=== PATIENT | female | born 1985 | race Caucasian/White ===

== ENCOUNTER 2017-10-22 20:35 | Emergency (ER) | payer MEDICAID ==
[~2017-10-22] VITALS: Ht 165.1 cm; Wt 106.0 kg
[2017-10-22] MEDS ORDERED: LABE100T3 PO (20:50)
[2017-10-22] MEDS ORDERED: SERT100T PO (20:50)
[2017-10-22] MEDS ORDERED: ALBUTEROL/IPRATROPIUM 2.5MG/0.5MG, 3 ML NPPB PRN (21:00)
[2017-10-22] MEDS ORDERED: ALBU0.63 NEB (21:09)
[2017-10-22] MEDS ORDERED: ALBUTEROL/IPRATROPIUM 2.5MG/0.5MG, 3 ML ONE ×2 (21:10→22:52)
[2017-10-22] MEDS ORDERED: PLEASE ENTER ALLERGIES MC SCH (21:30)
[2017-10-22 21:33] LABS: BASOPHILS # (AUTO) 0.07 x10^3/uL (0-0.1); BASOPHILS % (AUTO) 1 % (0-1); EOSINOPHILS # (AUTO) 0.71 x10^3/uL (0-0.4); EOSINOPHILS % (AUTO) 5 % (1-7); LYMPHOCYTES # (AUTO) 2.99 x10^3/uL (1-3.4); LYMPHOCYTES % (AUTO) 23 % (22-44); MD NO; MEAN CORPUSCULAR HGB CONC 33.6 g/dL (32.4-35.8); MEAN CORPUSCULAR VOLUME 89.3 fL (80-100); MEAN PLATELET VOLUME 8.1 fL (7.4-10.4); MONOCYTES # (AUTO) 0.65 x10^3/uL (0.2-0.8); MONOCYTES % (AUTO) 5 % (2-9); NEUTROPHILS # (AUTO) 8.84 x10^3/uL (1.8-6.8); NEUTROPHILS % (AUTO) 67 % (42-75); PLATELET COUNT 333 x10^3/uL (130-400); RED BLOOD COUNT 4.64 x10^6/uL (3.82-5.3); RED CELL DISTRIBUTION WIDTH 13.3 % (9.6-15.2)
[2017-10-22 21:40] LABS: ALANINE AMINOTRANSFERASE 16 U/L (12-78); ALBUMIN 3.6 g/dL (3.4-5.0); ANION GAP 4 mmol/L (5-15); CALCIUM 8.7 mg/dL (8.5-10.1); CHLORIDE 113 mmol/L (98-107); CREATININE 0.69 mg/dL (0.55-1.02)
[2017-10-22 21:44] LABS: ALKALINE PHOSPHATASE 100 U/L (45-117); BILIRUBIN,TOTAL 0.2 mg/dL (0.2-1.0)
[2017-10-22 21:49] LABS: MICROSCOPIC NOT IND
[2017-10-22 22:00] LABS: CULTURE INDICATED? NO
[2017-10-22] MEDS ORDERED: ONDANSETRON ODT 4 MG PO ONE (22:00)
[2017-10-22] MEDS ORDERED: MORPHINE SULFATE 4 MG/ML, 1ML IVPush PRN (22:00)
[2017-10-22] MEDS ORDERED: MORPHINE SULFATE 4 MG/ML, 1ML ONE (22:31)
[2017-10-22 22:35] VITALS: BP 147/101
[2017-10-22 22:53] LABS: CLUE CELLS PRESENT (NONE SEEN); WET PREP WBCS FEW (FEW)
== END 2017-10-22 23:52 | disposition home or self-care (01) ==
LOC: ED 23:15
DX: R10.2 Pelvic and perineal pain (principal); N76.0 Acute vaginitis; J45.909 Unspecified asthma, uncomplicated; I10 Essential (primary) hypertension
CPT/HCPCS: 36415; 71045; 76830; 80053; 81003; 84703; 85025; 87210; 87491; 87591; 87808; 93005; 94640; 96374; 99285; J7512; J7620

== ENCOUNTER 2018-04-03 14:43 | Emergency (ER) | payer MEDICAID ==
[~2018-04-03] VITALS: Ht 165.1 cm; Wt 102.3 kg
[~2018-04-03 14:43] MED LIST: ALBU0.63 NEB; LABE100T6 PO; SERT100T PO
[2018-04-03 15:13] VITALS: BP 137/102
[2018-04-03] MEDS ORDERED: HYDROcodone/APAP 5/325 TABLET PO ONE (16:00)
[2018-04-03] MEDS ORDERED: LIDOCAINE-MPF 1%, 5ML ONE (16:11)
[2018-04-03] MEDS ORDERED: HYDROcodone/APAP 5/325 TABLET ONE (16:22)
[2018-04-03] MEDS: LIDOCAINE 2%, 20ML SQ ONE ×2 (16:23→16:30)
== END 2018-04-03 17:07 | disposition home or self-care (01) ==
LOC: ED 17:01
DX: K04.7 Periapical abscess without sinus (principal); J45.909 Unspecified asthma, uncomplicated; I10 Essential (primary) hypertension; F32.9 Major depressive disorder, single episode, unspecified; Z90.49 Acquired absence of other specified parts of digestive tract
CPT/HCPCS: 99283; J3490